=== PATIENT | male | born 1950 | race Caucasian/White ===

== ENCOUNTER → 2019-02-03 08:00 | Outpatient (CLI) | payer OTHER, SELFPAY ==
[2019-02-03 08:45] LABS: Add Manual Diff / Slide Review NO; Basophils Absolute Auto 0 /uL (0-100); Basophils Percent Auto 0.7 % (0-2); Eosinophils Absolute Auto 200 /uL (0-450); Eosinophils Percent Auto 3.4 % (2-4); Hematocrit 42.3 % (41-53); Hemoglobin 14.3 g/dL (13.5-17.5); Lymphocytes Absolute Auto 1900 /uL (1100-4500); Lymphocytes Percent Auto 36.2 % (25-40); Mean Corpuscular HGB Conc 33.7 % (30-36); Mean Corpuscular Hemoglobin 31.8 PG (26-34); Mean Corpuscular Volume 94.2 fL (80-100); Monocytes Absolute Auto 600 /uL (0-900); Monocytes Percent Auto 10.6 % (3-14); Neutrophils Absolute Auto 2600 /uL (1500-7000); Neutrophils Percent Auto 49.1 % (50-75); Platelet Count 197 X10^3/uL (150-400); Red Blood Cell Count 4.49 X10^6/uL (4.5-5.9); Red Cell Distribution Width 13.9 % (11.6-14.8); White Blood Cell Count 5.3 X10^3/uL (4.5-11.0)
[2019-02-03 09:11] LABS: Alanine Aminotransferase 24 IU/L (21-72); Albumin 4.4 g/dL (3.5-5.0); Albumin Globulin Ratio 1.3 (1.0-2.8); Alkaline Phosphatase 57 U/L (38-126); Aspartate Aminotransferase 27 IU/L (17-59); BUN Creatinine Ratio 22.7 (6-22); Bilirubin Total 0.9 mg/dL (0.2-1.3); Blood Urea Nitrogen 25 mg/dL (9-20); Calcium 9.2 mg/dL (8.4-10.2); Carbon Dioxide 29 mmol/L (22-32); Chloride 104 mmol/L (98-107); Cholesterol 146 mg/dL (140-199); Estimated Glomerular Filt Rate > 60.0 mL/min (>60); Globulin 3.3 g/dL (1.7-4.1); Glucose 94 mg/dL (80-110); HDL Cholesterol 34 mg/dL (40-60); HEMOLYSIS < 15 (0-50); LDL Cholesterol Calculated 91 mg/dL (<100); Potassium 4.2 mmol/L (3.4-5.1); Sodium 141 mmol/L (137-145); Total Protein 7.7 g/dL (6.3-8.2); Triglycerides 107 mg/dL (35-150)
[2019-02-03 09:31] LABS: Prostate Specific Antigen Scrn 0.794 ng/mL (0.1-4.0)
[2019-02-03 09:34] LABS: Thyroid Stimulating Hormone 7.42 uIU/mL (0.47-4.68)
[2019-02-03 10:40] LABS: Free T3, Triiodothyronine Free 4.11 pg/mL (2.77-5.27); Free T4, Direct Thyroxine 1.13 ng/dL (0.78-2.19)
== END ==
PROVIDERS: PCP Family Medicine; Visit Provider Family Medicine
DX: E78.5 Hyperlipidemia, unspecified (principal); E03.9 Hypothyroidism, unspecified; Z12.5 Encounter for screening for malignant neoplasm of prostate
CPT/HCPCS: 36415; 80053; 80061; 84439; 84443; 84481; 85025; G0103

== ENCOUNTER → 2019-03-12 10:12 | Outpatient (CLI) | payer OTHER, SELFPAY ==
[2019-03-12 10:55] LABS: Add Manual Diff / Slide Review NO; Basophils Absolute Auto 0 /uL (0-100); Basophils Percent Auto 0.5 % (0-2); Eosinophils Absolute Auto 200 /uL (0-450); Eosinophils Percent Auto 3.1 % (2-4); Hematocrit 41.7 % (41-53); Lymphocytes Absolute Auto 1700 /uL (1100-4500); Lymphocytes Percent Auto 29.6 % (25-40); Mean Corpuscular HGB Conc 33.5 % (30-36); Mean Corpuscular Hemoglobin 31.4 PG (26-34); Mean Corpuscular Volume 93.7 fL (80-100); Monocytes Absolute Auto 700 /uL (0-900); Monocytes Percent Auto 11.6 % (3-14); Neutrophils Absolute Auto 3100 /uL (1500-7000); Neutrophils Percent Auto 55.2 % (50-75); Platelet Count 219 X10^3/uL (150-400); Red Blood Cell Count 4.45 X10^6/uL (4.5-5.9); Red Cell Distribution Width 13.6 % (11.6-14.8); White Blood Cell Count 5.7 X10^3/uL (4.5-11.0)
[2019-03-12 11:12] LABS: Alanine Aminotransferase 23 IU/L (21-72); Albumin 4.4 g/dL (3.5-5.0); Albumin Globulin Ratio 1.3 (1.0-2.8); Alkaline Phosphatase 65 U/L (38-126); Aspartate Aminotransferase 27 IU/L (17-59); BUN Creatinine Ratio 25.5 (6-22); Bilirubin Total 0.7 mg/dL (0.2-1.3); Bilirubin Unconjugated 0.6 mg/dL (0.0-1.1); Blood Urea Nitrogen 28 mg/dL (9-20); Calcium 9.2 mg/dL (8.4-10.2); Carbon Dioxide 28 mmol/L (22-32); Chloride 105 mmol/L (98-107); Estimated Glomerular Filt Rate > 60.0 mL/min (>60); Globulin 3.4 g/dL (1.7-4.1); Glucose 77 mg/dL (80-110); HEMOLYSIS < 15 (0-50); Sodium 143 mmol/L (137-145); Total Protein 7.8 g/dL (6.3-8.2)
== END ==
PROVIDERS: Family Provider Family Medicine; PCP Family Medicine; Visit Provider Podiatrist
DX: L60.8 Other nail disorders (principal)
CPT/HCPCS: 36415; 80048; 80076; 85025

== ENCOUNTER → 2020-04-05 11:40 | Outpatient (CLI) | payer OTHER, SELFPAY ==
[2020-04-05 12:25] LABS: Add Manual Diff / Slide Review NO; Basophils Absolute Auto 0 /uL (0-100); Basophils Percent Auto 0.9 % (0-2); Eosinophils Absolute Auto 200 /uL (0-450); Hematocrit 42.6 % (41-53); Hemoglobin 14.6 g/dL (13.5-17.5); Lymphocytes Absolute Auto 1800 /uL (1100-4500); Lymphocytes Percent Auto 32.2 % (25-40); Mean Corpuscular HGB Conc 34.4 % (30-36); Mean Corpuscular Hemoglobin 32.2 PG (26-34); Mean Corpuscular Volume 93.6 fL (80-100); Monocytes Absolute Auto 600 /uL (0-900); Monocytes Percent Auto 10.4 % (3-14); Neutrophils Absolute Auto 3000 /uL (1500-7000); Neutrophils Percent Auto 53.5 % (50-75); Platelet Count 213 X10^3/uL (150-400); Red Blood Cell Count 4.55 X10^6/uL (4.5-5.9); Red Cell Distribution Width 13.4 % (11.6-14.8); White Blood Cell Count 5.7 X10^3/uL (4.5-11.0)
[2020-04-05 12:35] LABS: Alanine Aminotransferase 21 IU/L (<50); Albumin 4.6 g/dL (3.5-5.0); Albumin Globulin Ratio 1.3 (1.0-2.8); Alkaline Phosphatase 63 U/L (38-126); Aspartate Aminotransferase 28 IU/L (17-59); Bilirubin Total 0.9 mg/dL (0.2-1.3); Blood Urea Nitrogen 19 mg/dL (9-20); Calcium 9.6 mg/dL (8.4-10.2); Carbon Dioxide 29 mmol/L (22-32); Chloride 107 mmol/L (98-107); Cholesterol 169 mg/dL (140-199); Estimated Glomerular Filt Rate > 60.0 mL/min (>60); Globulin 3.5 g/dL (1.7-4.1); Glucose 104 mg/dL (80-110); HDL Cholesterol 33 mg/dL (40-60); HEMOLYSIS < 15 (0-50); LDL Cholesterol Calculated 106 mg/dL (<100); Potassium 4.4 mmol/L (3.4-5.1); Sodium 142 mmol/L (137-145); Total Protein 8.1 g/dL (6.3-8.2); Triglycerides 152 mg/dL (35-150)
== END ==
PROVIDERS: Family Provider Family Medicine; PCP Family Medicine; Referring Provider Family Medicine; Visit Provider Family Medicine
DX: Z12.5 Encounter for screening for malignant neoplasm of prostate (principal); E78.5 Hyperlipidemia, unspecified; I10 Essential (primary) hypertension
CPT/HCPCS: 36415; 80053; 80061; 85025; G0103

== ENCOUNTER 2020-07-18 10:17 | Emergency (ER) | payer OTHER, SELFPAY ==
--- NOTE | 2020-07-18 10:29 | ED_ITS ---
HPI - Male Genitourinary General Chief complaint: Urogenital-Male Stated complaint: kidney stone 7am Time Seen by Provider: 07/18/20 10:18 Source: patient and family Mode of arrival: Ambulatory Limitations: no limitations History of Present Illness HPI Narrative: 69-year-old male nonsmoker with history of hypertension and former kidney stones presents with a chief complaint of a sudden onset left lower quadrant sharp and stabbing pain without provocation or palliation that started this morning at 7:00 a.m.. He cannot find a position of comfort. It reminds him of prior kidney stones. He denies any recent injury. He is nauseated but denies any vomiting. He denies any chest pain or shortness of breath. He denies fever, chills or back pain. Onset (ago): hour(s) Duration: constant Location: left inguinal region Severity: similar to previous episodes Relieving factors: none Exacerbating factors: none Associated symptoms: Reports nausea/vomiting Related Data Home Medications Medication Instructions Recorded Confirmed ASPIRIN (#ASPIRIN) 81 mg PO QDAY #0 08/30/11 04/12/20 cholecalciferol (vitamin D3) 2,000 iu PO QDAY #0 08/30/11 04/12/20 [Vitamin D3] doxylamine succinate [Sleep Aid 12.5 mg PO HS #0 09/04/11 04/12/20 (doxylamine)] CA PANTOTHENATE/FOLIC ACID/VIT 1 tab PO QDAY #0 12/27/12 04/12/20 (MULTIVITAMIN) COENZYME Q10/VITAMIN E (CO-Q-10 100 mg PO QDAY #0 12/27/12 04/12/20 100mg) Previous Rx's Medication Instructions Recorded lorazepam 0 mg PO Q6HP PRN #30 tab 12/26/17 triamterene-hydrochlorothiazid 0 PO QDAY #45 tab 01/30/18 [Maxzide] varicella-zoster gE-AS01B (PF) 0.5 ml IM SEE INSTRUCTIONS #1 ea 01/30/18 [Shingrix (PF)] amlodipine 10 mg tablet 10 mg PO QDAY #90 tab 03/15/20 simvastatin 40 mg tablet See Rx Instructions .ROUTE 05/26/20 .COMPLEX #45 tab hydrocodone-acetaminophen 1 tab PO Q4-6H PRN #10 tab 07/18/20 ketorolac 10 mg PO Q6H PRN #14 tab 07/18/20 ondansetron 4 mg PO TID-QID PRN #10 tab 07/18/20 tamsulosin [Flomax] 0.4 mg PO DAILY #10 cap 07/18/20 Allergies Allergy/AdvReac Type Severity Reaction Status Date / Time No Known Drug Allergies Allergy Unverified 04/12/20 10:58 Review of Systems Constitutional Constitutional: Denies chills, Denies fatigue, Denies fever(s), Denies frequent falls, Denies lethargy and Denies weakness Eyes Eyes: Denies change in vision, Denies eye discharge, Denies irritation and Denies loss of vision ENT Ears, Nose, Mouth, and Throat: Denies change in voice, Denies dizziness, Denies neck pain, Denies sore throat and Denies throat swelling Cardiovascular Cardiovascular: Denies chest pain, Denies irregular heart rhythm, Denies lightheadedness, Denies palpitations, Denies dyspnea, Denies dyspnea on exertion and Denies orthopnea Respiratory Respiratory: Denies cough, Denies dyspnea, Denies dyspnea on exertion and Denies wheezing Gastrointestinal Gastrointestinal: Denies abdominal pain, Denies change in bowel habits, Denies diarrhea, Denies nausea and Denies vomiting Genitourinary Comments: Left groin pain Musculoskeletal Musculoskeletal: Denies neck pain and Denies numbness Integumentary/Breasts Skin/Breast: Denies pruritus, Denies erythema, Denies rash and Denies wounds Neurologic Neurologic: Denies behavioral changes, Denies confusion, Denies dizziness, Denies frequent falls, Denies loss of vision, Denies numbness and Denies weakness Psychiatric Psychiatric: Denies anxiety, Denies behavioral changes, Denies confusion, Denies depression, Denies homicidal ideation and Denies suicidal ideation Endocrine Endocrine: Denies fatigue, Denies flushing and Denies palpitations Hematologic/Lymphatic Hematologic/Lymphatic: Denies easy bruising Allergic/Immunologic Allergic/Immunologic: Denies urticaria, Denies throat swelling and Denies w heezing Patient History Surgical History History of vasectomy Social History marital status: number of children: 2 household members: spouse lives independently: Yes caregiver/support person: No housing: house Smoking Status: Never smoker second hand exposure: No alcohol intake: current substance use type: does not use Smoking Status: Never smoker Exam Narrative Exam Narrative: GENERAL: [69] year old patient appears stated age. Well- nourished, well-developed patient, in obvious significant distress, pacing the r oom, rubbing his left lower abdomen and groin HEAD: Atraumatic. Normocephalic. EYES: Pupils equal round and reactive. Extraocular motions intact. No scleral icterus. No injection or drainage. ENT: Nose without bleeding, purulent drainage. Throat without erythema, tonsillar hypertrophy or exudate. Airway patent. NECK: Trachea midline. Non tender CARDIOVASCULAR: Regular rate and rhythm without murmurs, gallops, or rubs. RESPIRATORY: Clear to auscultation. Breath sounds equal bilaterally. No wheezes, rales, or rhonchi. GASTROINTESTINAL: Abdomen soft, non-tender, nondistended. EXTREMITIES: No edema or joint tenderness. BACK: Nontender without deformity or crepitance. No flank tenderness. NEURO: AOx3. SKIN: No rash or erythema of visible areas Initial Vital Signs Initial Vital Signs: Vital Signs Temperature 97.9 F 07/18/20 10:41 Pulse Rate 68 07/18/20 10:41 Respiratory Rate 07/18/20 10:41 Blood Pressure 138/79 07/18/20 10:41 Pulse Oximetry 100 07/18/20 10:41 Course Orders Ordered: ED Orders 07/18/20 10:38 Basic Metabolic Panel Stat Complete Blood Count AUTO DIFF Stat 07/18/20 10:40 CT kidney ureter bladder (KUB) Stat 07/18/20 12:22 Urine Microscopic Stat Discontinued Medications Sodium Chloride (Normal Saline 0.9%) 1,000 mls @ 1,000 mls/hr IV BOLUS ONE Stop: 07/18/20 11:38 Last Infusion: 07/18/20 13:24 Dose: 1,000 mls/hr Documented by: Infusion: 07/18/20 11:55 Dose: 1,000 mls/hr Documented by: Admin: 07/18/20 11:12 Dose: 1,000 mls/hr Documented by: ALBERTA Lidocaine HCl 6.5 ml/ Sodium (Chloride) 56.5 mls @ 339 mls/hr IV NOW ONE Stop: 07/18/20 10:41 Last Infusion: 07/18/20 11:55 Dose: 0 mls/hr Documented by: Admin: 07/18/20 11:09 Dose: 339 mls/hr Documented by: ALBERTA Ketorolac Tromethamine (Toradol) 15 mg IV NOW ONE Stop: 07/18/20 10:40 Last Admin: 07/18/20 11:12 Dose: 15 mg Documented by: ALBERTA Ondansetron HCl (Zofran) 4 mg IV NOW ONE Stop: 07/18/20 11:05 Last Admin: 07/18/20 11:08 Dose: 4 mg Documented by: ALBERTA Reevaluation(s) Reevaluation #1: patient feeling much better after above stated therapies Time: 11:58 Vital Signs Vital signs: Vital Signs - 8 hr 07/18/20 10:41 07/18/20 11:36 07/18/20 12:00 Temperature 97.9 F Pulse Rate 68 69 69 Respiratory Rate 20 Blood Pressure 138/79 157/78 H Pulse Oximetry 100 100 100 07/18/20 12:30 07/18/20 13:00 Temperature Pulse Rate 62 65 Respiratory Rate Blood Pressure 159/79 H 162/82 H Pulse Oximetry 99 100 MDM - Male Genitourinary Lab Data Result diagrams: 07/18/20 10:38 07/18/20 10:38 Labs: Lab Results 07/18/20 07/18/20 07/18/20 Range/Units 10:38 10:38 12:22 WBC 13.4 H (4.5-11.0) X10^3/uL RBC 4.44 L (4.5-5.9) X10^6/uL Hgb 13.9 (13.5-17.5) g/dL Hct 41.3 (41-53) % MCV 93.0 (80-100) fL MCH 31.3 (26-34) PG MCHC 33.6 (30-36) % RDW 13.5 (11.6-14.8) % Plt Count 226 (150-400) X10^3/uL Neut % (Auto) 77.1 H (50-75) % Lymph % (Auto) 15.1 L (25-40) % [place] % (Auto) 7.0 (3-14) % Eos % (Auto) 0.3 L (2-4) % Baso % (Auto) 0.5 (0-2) % Neut # (Auto) 63929 H (0908-9079) /uL Lymph # (Auto) 2000 (5835-1162) /uL [place] # (Auto) 900 (0-900) /uL Eos # (Auto) 0 (0-450) /uL Baso # (Auto) 100 (0-100) /uL Sodium 138 (137-145) mmol/L Potassium 3.3 L (3.4-5.1) mmol/L Chloride 106 (98-107) mmol/L Carbon Dioxide 22 (22-32) mmol/L BUN 23 H (9-20) mg/dL Creatinine 1.16 (0.66-1.25) mg/dL Estimated GFR > 60.0 (>60) mL/min BUN/Creatinine Ratio 19.8 (6-22) Glucose 131 H (80-110) mg/dL Calcium 9.1 (8.4-10.2) mg/dL Urine RBC 1-5/hpf (0-5/HPF) Urine WBC 0-1/hpf (0-5/HPF) Ur Squamous Epith Cells 0-1 /hpf (0-5/HPF) Urine Bacteria None seen (None) Ur Culture Indicated? Cult not indicated Urine Dip Bedside Urine Glucose Negative Bedside Urine Bilirubin - Negative Bedside Urine Ketone +/- 5 Urine Specific [place] 1.015 Bedside Urine Occult Blood +/- Bedside Urine pH 7.0 Bedside Urine Protein - Negative Bedside Urine Urobilinogen - Negative Bedside Urine Nitrite - Negative Bedside Urine Leukocytes - Negative Esterase Imaging Data CT scan - abdomen/pelvis: Radiologist's Impression: Chart Viewer Diagnostics DATE TYPE STATUS REF RANGE/AUTHOR Hx 07/18/20 10:40 Irineo MobleytersStiven 69, M112/16/1949 [facility], Main ED R12 86.183kg Urogenital-Male Search Chart No Data to Display NF - Not included in interaction checking ONSET Today 10:41 Stiven Nieves 69 M [address] [address] [address] Scan Report Signed Patient: EzequielStiven GMR#: [id number] : 1950Acct:[id number] Age/Sex: 69 / MDate of Service: 07/18/20 Loc: ED Accession Number: [id number] Procedure: CT kidney ureter bladder (KUB) Ordering Provider: Inderjit Andrews D.O. PROCEDURE: CT KIDNEY URETER BLADDER (KUB) INDICATIONS: severe L flank pain TECHNIQUE: Noncontrast 5 mm thick sections acquired from the diaphragms to the symphysis. 5 mm thick coronal and sagittal reformats were then performed. For radiation dose reduction, the following was used: automated exposure control, adjustment of mA and/or kV according to patient size. COMPARISON: Merged With [facility], CT, KIDNEY/ URETER/BLADDER, 06/26/2010, 9:13. FINDINGS: Image quality: Excellent. Lung bases: Lung bases are clear. Heart size is normal. A small hiatal hernia is incidentally noted. Urinary system: There is a 3-4 mm distal left ureteral stone seen, as on series 2, image 73 and on series 4, image 36. There is mild left-sided hydronephrosis and hydroureter. No right-sided hydronephrosis is seen. Numerous nonobstructing bilateral renal stones are seen, which measure up to 2 mm on each side. Both kidneys are normal in size. Bilateral peripelvic cysts are seen. An additional water density cyst is seen exophytic at the inferior pole of the left kidney measuring 1.5 cm. Bladder wall thickness is normal; no calcified bladder stones. Other solid organs: Liver is normal in size. Gallbladder demonstrates no significant abnormality. Pancreas is normal in contours. Spleen is normal in size. No adrenal nodules. Peritoneum and bowel: Moderate sigmoid diverticulosis is seen. Generalized wall thickening is seen involving the colon, particularly distally. No dilated loops of small bowel are seen. No free air or significant free fluid can be seen. A normal appendix is incidentally noted. Nodes and vessels: No retroperitoneal or mesenteric adenopathy by size criteria. Aorta and inferior vena cava are normal in caliber. Atherosclerotic calcification is noted. Abdominal wall: A mild periumbilical hernia is seen, containing fat. Pelvis: No free pelvic fluid. No enlarged inguinal or pelvic lymph nodes are seen. There is a fat-containing right inguinal hernia seen. The prostate does not appear enlarged. Bones: No suspicious bony lesions. No vertebral body compression fractures. Generalized degenerative changes are seen, including focal L5-S1 degenerative change. IMPRESSION: 3-4 mm obstructing distal left ureteral stone, with mild left-sided hydronephrosis. Numerous nonobstructing tiny bilateral renal stones are seen, which measure up to 2 mm. Numerous bilateral peripelvic cysts are seen Generalized wall thickening is seen involving colon. Please consider infectious or inflammatory change. Differential diagnosis includes artifact from non distension, however. Moderate sigmoid diverticulosis is seen, without diana active diverticulitis. Incidental note is made of: Small hiatal hernia Right containing periumbilical hernia Normal appendix Focal L5-S1 degenerative change Fat containing right inguinal hernia Dictated by: Irineo Mobley M.D. on 07/18/2020 at 10:03 Approved by: Irineo Mobley M.D. on 07/18/2020 at 10:08 Discharge Plan Departure Patient Disposition: Home Clinical Impression: Kidney stone on left side Discharge Date/Time: 07/18/20 13:25 Instructions: DI for Kidney Stones Activity Restrictions/Additional Instructions: *You have been diagnosed with [ left sided 3mm kidney stone ] *What to do: *Take medications as directed *Follow up with your primary care provider in 2-3 days, call for an appointment. Let them know you were seen in the Emergency Department and that we ask that you be seen in follow up *Return to ER if you should have any new, worsening or concerning symptoms Prescriptions: New tamsulosin [Flomax] 0.4 mg capsule 0.4 mg PO DAILY Qty: 10 RF: 0 hydrocodone-acetaminophen 5-325 mg tablet 1 tab PO Q4-6H PRN (Reason: pain) Qty: 10 RF: 0 ketorolac 10 mg tablet 10 mg PO Q6H PRN (Reason: pain) Qty: 14 RF: 0 ondansetron 4 mg tablet,disintegrating 4 mg PO TID-QID PRN (Reason: nausea and vomiting) Qty: 10 RF: 0 No Action ASPIRIN (#ASPIRIN) 81 mg PO QDAY Qty: 0 RF: 0 cholecalciferol (vitamin D3) [Vitamin D3] 2,000 UNIT capsule 2,000 iu PO QDAY Qty: 0 RF: 0 doxylamine succinate [Sleep Aid (doxylamine)] 25 MG tablet 12.5 mg PO HS Qty: 0 RF: 0 CA PANTOTHENATE/FOLIC ACID/VIT (MULTIVITAMIN) 1 tab PO QDAY Qty: 0 RF: 0 COENZYME Q10/VITAMIN E (CO-Q-10 100mg) 100 mg PO QDAY Qty: 0 RF: 0 lorazepam 1 MG tablet 0 mg PO Q6HP PRNQty: 30 RF: 0 triamterene-hydrochlorothiazid [Maxzide] 75 MG/50 MG tablet 0 PO QDAY Qty: 45 RF: 3 varicella-zoster gE-AS01B (PF) [Shingrix (PF)] 50 MCG/0.5 ML suspension for r econstitution 0.5 ml IM SEE INSTRUCTIONS Qty: 1 RF: 1 amlodipine [Norvasc] 10 mg tablet 10 mg PO QDAY Qty: 90 RF: 3 simvastatin 40 mg tablet See Rx Instructions .ROUTE .COMPLEX Qty: 45 RF: 0 Referrals: Denis Ward MD [Physician] - Nia Haynes MD [Primary Care Provider] -
--- NOTE | 2020-07-18 10:40 | DI.CT.S_ITS ---
PROCEDURE: CT KIDNEY URETER BLADDER (KUB) INDICATIONS: severe L flank pain TECHNIQUE: Noncontrast 5 mm thick sections acquired from the diaphragms to the symphysis. 5 mm thick coronal and sagittal reformats were then performed. For radiation dose reduction, the following was used: automated exposure control, adjustment of mA and/or kV according to patient size. COMPARISON: [facility], CT, KIDNEY/ URETER/BLADDER, 06/26/2010, 9:13. FINDINGS: Image quality: Excellent. Lung bases: Lung bases are clear. Heart size is normal. A small hiatal hernia is incidentally noted. Urinary system: There is a 3-4 mm distal left ureteral stone seen, as on series 2, image 73 and on series 4, image 36. There is mild left-sided hydronephrosis and hydroureter. No right-sided hydronephrosis is seen. Numerous nonobstructing bilateral renal stones are seen, which measure up to 2 mm on each side. Both kidneys are normal in size. Bilateral peripelvic cysts are seen. An additional water density cyst is seen exophytic at the inferior pole of the left kidney measuring 1.5 cm. Bladder wall thickness is normal; no calcified bladder stones. Other solid organs: Liver is normal in size. Gallbladder demonstrates no significant abnormality. Pancreas is normal in contours. Spleen is normal in size. No adrenal nodules. Peritoneum and bowel: Moderate sigmoid diverticulosis is seen. Generalized wall thickening is seen involving the colon, particularly distally. No dilated loops of small bowel are seen. No free air or significant free fluid can be seen. A normal appendix is incidentally noted. Nodes and vessels: No retroperitoneal or mesenteric adenopathy by size criteria. Aorta and inferior vena cava are normal in caliber. Atherosclerotic calcification is noted. Abdominal wall: A mild periumbilical hernia is seen, containing fat. Pelvis: No free pelvic fluid. No enlarged inguinal or pelvic lymph nodes are seen. There is a fat-containing right inguinal hernia seen. The prostate does not appear enlarged. Bones: No suspicious bony lesions. No vertebral body compression fractures. Generalized degenerative changes are seen, including focal L5-S1 degenerative change. IMPRESSION: 3-4 mm obstructing distal left ureteral stone, with mild left-sided hydronephrosis. Numerous nonobstructing tiny bilateral renal stones are seen, which measure up to 2 mm. Numerous bilateral peripelvic cysts are seen Generalized wall thickening is seen involving colon. Please consider infectious or inflammatory change. Differential diagnosis includes artifact from non distension, however. Moderate sigmoid diverticulosis is seen, without diana active diverticulitis. Incidental note is made of: Small hiatal hernia Right containing periumbilical hernia Normal appendix Focal L5-S1 degenerative change Fat containing right inguinal hernia Dictated by: Irineo Mobley M.D. on 07/18/2020 at 10:03 Approved by: Irineo Mobley M.D. on 07/18/2020 at 10:08
[2020-07-18 10:41] VITALS: BP 138/79; PULSE 68; RESP 20; TEMP 36.6; O2SAT 100
[2020-07-18 10:48] LABS: Add Manual Diff / Slide Review NO; Basophils Absolute Auto 100 /uL (0-100); Basophils Percent Auto 0.5 % (0-2); Eosinophils Absolute Auto 0 /uL (0-450); Eosinophils Percent Auto 0.3 % (2-4); Hematocrit 41.3 % (41-53); Hemoglobin 13.9 g/dL (13.5-17.5); Lymphocytes Absolute Auto 2000 /uL (1100-4500); Lymphocytes Percent Auto 15.1 % (25-40); Mean Corpuscular HGB Conc 33.6 % (30-36); Mean Corpuscular Hemoglobin 31.3 PG (26-34); Monocytes Absolute Auto 900 /uL (0-900); Neutrophils Absolute Auto 10300 /uL (1500-7000); Neutrophils Percent Auto 77.1 % (50-75); Platelet Count 226 X10^3/uL (150-400); Red Blood Cell Count 4.44 X10^6/uL (4.5-5.9); Red Cell Distribution Width 13.5 % (11.6-14.8); White Blood Cell Count 13.4 X10^3/uL (4.5-11.0)
[2020-07-18 10:53] LABS: BUN Creatinine Ratio 19.8 (6-22); Blood Urea Nitrogen 23 mg/dL (9-20); Calcium 9.1 mg/dL (8.4-10.2); Carbon Dioxide 22 mmol/L (22-32); Chloride 106 mmol/L (98-107); Estimated Glomerular Filt Rate > 60.0 mL/min (>60); Glucose 131 mg/dL (80-110); HEMOLYSIS 17 (0-50); Potassium 3.3 mmol/L (3.4-5.1); Sodium 138 mmol/L (137-145)
[2020-07-18] MEDS: ONDANSETRON 4 MG/2 ML INJ IV (11:08)
[2020-07-18] MEDS: LIDOCAINE 2% 6.5 ML in SODIUM CHLORIDE 0.9% 50 ML 339 ML IV (11:09)
[2020-07-18] MEDS: KETOROLAC 60 MG/2 ML VIAL 15 MG IV (11:12)
[2020-07-18] MEDS: SODIUM CHLORIDE 0.9% 1,000 ML 1000 ML IV (11:12)
[2020-07-18 11:36] VITALS: PULSE 69; O2SAT 100
[2020-07-18 12:00] VITALS: BP 157/78; PULSE 69; O2SAT 100
[2020-07-18 12:30] VITALS: BP 159/79; PULSE 62; O2SAT 99
[2020-07-18 12:50] LABS: Bacteria Urine None Seen
[2020-07-18 12:58] LABS: RBC Urine 1-5/HPF (0-5/HPF); WBC Urine 0-1/HPF (0-5/HPF)
[2020-07-18 12:59] LABS: Culture Indicated Urine Cult Not Indicated; Squamous Epithelial Cell Urine 0-1 /HPF (0-5/HPF)
[2020-07-18 13:00] VITALS: BP 162/82; PULSE 65; O2SAT 100
== END 2020-07-18 13:25 | disposition home or self-care (01) ==
PROVIDERS: Emergency Provider Emergency Medicine; Family Provider Family Medicine; PCP Family Medicine
DX: N20.0 Calculus of kidney (principal); R11.2 Nausea with vomiting, unspecified; Z87.442 Personal history of urinary calculi
CPT/HCPCS: 36415; 74176; 80048; 81003; 81015; 85025; 96365; 96375; 99284; J1885; J2405

== ENCOUNTER 2020-07-20 00:34 | Observation (INO) | payer OTHER, SELFPAY ==
[2020-07-20] VITALS (19 sets, daily range): BP systolic 134–161; BP diastolic 51–96; PULSE 57–88; RESP 10–20; TEMP 36.4–37.1; O2SAT 93–100; BMI 27.2
--- NOTE | 2020-07-20 00:48 | ED.MALEGU ---
HPI - Male Genitourinary General Chief complaint: Back Pain/Injury Stated complaint: left kidney stone, pain is worse Time Seen by Provider: 07/20/20 00:35 Source: patient Mode of arrival: Ambulatory Limitations: no limitations History of Present Illness HPI Narrative: 69M nonsmoker with a known 3-4mm left distal ureteral stone presents with his and the chief complaint of worsening left flank pain. He has had no fever or chills, but states his pain is worse and he hasn't been eating or drinking much. He denies provocation or palliation of the pain. He denies any injury. MD Complaint: other Onset (ago): day(s) Duration: constant Location: left flank Radiation: left inguinal region Severity: severe Quality: aching and stabbing Relieving factors: none Exacerbating factors: none Associated symptoms: Reports nausea/vomiting Related Data Home Medications Medication Instructions Recorded Confirmed ASPIRIN (#ASPIRIN) 81 mg PO QDAY #0 08/30/11 04/12/20 cholecalciferol (vitamin D3) 2,000 iu PO QDAY #0 08/30/11 04/12/20 [Vitamin D3] doxylamine succinate [Sleep Aid 12.5 mg PO HS #0 09/04/11 04/12/20 (doxylamine)] CA PANTOTHENATE/FOLIC ACID/VIT 1 tab PO QDAY #0 12/27/12 04/12/20 (MULTIVITAMIN) COENZYME Q10/VITAMIN E (CO-Q-10 100 mg PO QDAY #0 12/27/12 04/12/20 100mg) Previous Rx's Medication Instructions Recorded lorazepam 0 mg PO Q6HP PRN #30 tab 12/26/17 triamterene-hydrochlorothiazid 0 PO QDAY #45 tab 01/30/18 [Maxzide] varicella-zoster [id number] (PF) 0.5 ml IM SEE INSTRUCTIONS #1 ea 01/30/18 [Shingrix (PF)] amlodipine 10 mg tablet 10 mg PO QDAY #90 tab 03/15/20 simvastatin 40 mg tablet See Rx Instructions .ROUTE 05/26/20 .COMPLEX #45 tab hydrocodone-acetaminophen 1 tab PO Q4-6H PRN #10 tab 07/18/20 ketorolac 10 mg PO Q6H PRN #14 tab 09/20/20 ondansetron 4 mg PO TID-QID PRN #10 tab 07/18/20 tamsulosin [Flomax] 0.4 mg PO DAILY #10 cap 07/18/20 Allergies Allergy/AdvReac Type Severity Reaction Status Date / Time No Known Drug Allergies Allergy Unverified 04/12/20 10:58 Review of Systems Constitutional Constitutional: Denies chills, Denies fatigue, Denies fever(s), Denies frequent falls, Denies lethargy and Denies weakness Eyes Eyes: Denies change in vision, Denies eye discharge, Denies irritation and Denies loss of vision ENT Ears, Nose, Mouth, and Throat: Denies change in voice, Denies dizziness, Denies neck pain, Denies sore throat and Denies throat swelling Cardiovascular Cardiovascular: Denies chest pain, Denies irregular heart rhythm, Denies lightheadedness, Denies palpitations, Denies dyspnea, Denies dyspnea on exertion and Denies orthopnea Respiratory Respiratory: Denies cough, Denies dyspnea, Denies dyspnea on exertion and Denies wheezing Gastrointestinal Gastrointestinal: Denies abdominal pain, Denies change in bowel habits, Denies diarrhea, Denies nausea and Denies vomiting Genitourinary Comments: flank pain Musculoskeletal Musculoskeletal: Denies neck pain and Denies numbness Integumentary/Breasts Skin/Breast: Denies pruritus, Denies erythema, Denies rash and Denies wounds Neurologic Neurologic: Denies behavioral changes, Denies confusion, Denies dizziness, Denies frequent falls, Denies loss of vision, Denies numbness and Denies weakness Psychiatric Psychiatric: Denies anxiety, Denies behavioral changes, Denies confusion, Denies depression, Denies homicidal ideation and Denies suicidal ideation Endocrine Endocrine: Denies fatigue, Denies flushing and Denies palpitations Hematologic/Lymphatic Hematologic/Lymphatic: Denies easy bruising Allergic/Immunologic Allergic/Immunologic: Denies urticaria, Denies throat swelling and Denies wheezing Patient History Surgical History History of vasectomy Social History marital status: number of children: 2 household members: spouse lives independently: Yes caregiver/support person: No housing: house Smoking Status: Never smoker second hand exposure: No alcohol intake: current substance use type: does not use Smoking Status: Never smoker alcohol intake frequency: other Substance Use Type: does not use Exam Narrative Exam Narrative: GENERAL 60 year old patient appears stated age. Well-nourished, well-developed patient, in obvious pain. HEAD: Atraumatic. Normocephalic. EYES: Pupils equal round and reactive. Extraocular motions intact. No scleral icterus. No injection or drainage. ENT: Nose without bleeding, purulent drainage. Throat without erythema, tonsillar hypertrophy or exudate. Airway patent. NECK: Trachea midline. Non tender CARDIOVASCULAR: Regular rate and rhythm without murmurs, gallops, or rubs. RESPIRATORY: Clear to auscultation. Breath sounds equal bilaterally. No wheezes, rales, or rhonchi. GASTROINTESTINAL: Abdomen soft, non-tender, nondistended. EXTREMITIES: No edema or joint tenderness. BACK: Nontender without deformity or crepitance. No flank tenderness. NEURO: AOx3. SKIN: No rash or erythema of visible areas Initial Vital Signs Initial Vital Signs: Vital Signs Temperature 98.3 F 07/20/20 00:42 Pulse Rate 66 07/20/20 00:42 Respiratory Rate 20 07/20/20 00:42 Blood Pressure 161/77 H 07/20/20 00:42 Pulse Oximetry 100 07/20/20 00:42 Course Orders Ordered: ED Orders 07/20/20 00:56 Basic Metabolic Panel Stat Complete Blood Count AUTO DIFF Stat 07/20/20 01:32 US renal complete Stat 07/20/20 03:00 Creatinine & eGFR Stat Ceftriaxone Sodium/Dextrose (Rocephin) 1 gm in 50 mls @ 100 mls/hr IV NOW ONE Stop: 07/20/20 04:03 Ondansetron HCl (Zofran) 4 mg IV Q4HR PRN PRN Reason: Nausea And Vomiting Last Admin: 07/20/20 00:59 Dose: 4 mg Documented by: SULY Discontinued Medications Hydromorphone HCl (Dilaudid) 0.5 mg IV NOW ONE Stop: 07/20/20 01:26 Last Admin: 07/20/20 01:28 Dose: 0.5 mg Documented by: DHARA Hydromorphone HCl (Dilaudid) 0.5 mg IV NOW ONE Stop: 07/20/20 03:35 Sodium Chloride (Normal Saline 0.9%) 1,000 mls @ 1,000 mls/hr IV BOLUS ONE Stop: 07/20/20 01:47 Last Infusion: 07/20/20 02:12 Dose: 0 mls/hr Documented by: Admin: 07/20/20 00:59 Dose: 1,000 mls/hr Documented by: SULY Lidocaine HCl 6.5 ml/ Sodium (Chloride) 56.5 mls @ 339 mls/hr IV NOW ONE Stop: 07/20/20 00:49 Last Infusion: 07/20/20 01:19 Dose: 0 mls/hr Documented by: Admin: 07/20/20 01:02 Dose: 339 mls/hr Documented by: DHARA Sodium Chloride (Normal Saline 0.9%) 1,000 mls @ 1,000 mls/hr IV BOLUS ONE Stop: 07/20/20 03:23 Last Admin: 07/20/20 02:27 Dose: 1,000 mls/hr Documented by: DHARA Ketorolac Tromethamine (Toradol) 15 mg IV NOW ONE Stop: 07/20/20 00:49 Last Admin: 07/20/20 00:59 Dose: 15 mg Documented by: SULY Vital Signs Vital signs: Vital Signs - 8 hr 07/20/20 00:42 07/20/20 01:07 07/20/20 01:30 Temperature 98.3 F Pulse Rate 66 81 78 Respiratory Rate 20 20 18 Blood Pressure 161/77 H 149/76 H 157/82 H Pulse Oximetry 100 100 100 07/20/20 02:00 07/20/20 02:30 07/20/20 02:59 Temperature Pulse Rate 70 65 70 Respiratory Rate 20 18 16 Blood Pressure 159/80 H 149/79 H 138/77 Pulse Oximetry 100 99 99 07/20/20 03:00 Temperature Pulse Rate 67 Respiratory Rate 14 Blood Pressure 147/85 H Pulse Oximetry 99 MDM - Male Genitourinary Lab Data Result diagrams: 07/20/20 00:56 07/20/20 03:00 Labs: Lab Results 07/20/20 07/20/20 07/20/20 Range/Units 00:56 00:56 03:00 WBC 13.9 H (4.5-11.0) X10^3/uL RBC 4.50 (4.5-5.9) X10^6/uL Hgb 14.1 (13.5-17.5) g/dL Hct 41.3 (41-53) % MCV 91.9 (80-100) fL MCH 31.4 (26-34) PG MCHC 34.1 (30-36) % RDW 13.4 (11.6-14.8) % Plt Count 207 (150-400) X10^3/uL Neut % (Auto) 77.8 H (50-75) % Lymph % (Auto) 11.0 L (25-40) % [place] % (Auto) 10.7 (3-14) % Eos % (Auto) 0.2 L (2-4) % Baso % (Auto) 0.3 (0-2) % Neut # (Auto) 81909 H (2260-5963) /uL Lymph # (Auto) 1500 (8874-6595) /uL [place] # (Auto) 1500 H (0-900) /uL Eos # (Auto) 0 (0-450) /uL Baso # (Auto) 0 (0-100) /uL Sodium 133 L (137-145) mmol/L Potassium 3.8 (3.4-5.1) mmol/L Chloride 100 (98-107) mmol/L Carbon Dioxide 21 L (22-32) mmol/L BUN 27 H (9-20) mg/dL Creatinine 1.86 H 1.78 H (0.66-1.25) mg/dL Estimated GFR 36.2 L 38.1 L (>60) mL/min BUN/Creatinine Ratio 14.5 (6-22) Glucose 127 H (80-110) mg/dL Calcium 9.4 (8.4-10.2) mg/dL Imaging Data US - abdomen: Radiologist's Impression: bilateral hydronephrosis, no ureteral jet on left MDM Narrative Medical decision making narrative: patient returns to the ED again, has worsening renal function and not tolerating pain at home. Call to Dr. Ward who is happy to accept this patient on his service. Requests that patient be admitted, kept NPO, pain meds, nausea meds. Discharge Plan Departure Patient Disposition: Admitted as Observation Clinical Impression: Acute unilateral obstructive uropathy Discharge Date/Time: 07/20/20 03:16 Admit Date/Time: 07/20/20 03:15 Admit Provider: Denis Ward
[2020-07-20] MEDS: KETOROLAC 60 MG/2 ML VIAL 15 MG IV (00:59)
[2020-07-20] MEDS: ONDANSETRON 4 MG/2 ML INJ IV (00:59)
[2020-07-20] MEDS: SODIUM CHLORIDE 0.9% 1,000 ML 1000 ML IV ×2 (00:59→02:27)
[2020-07-20] MEDS: LIDOCAINE 2% 6.5 ML in SODIUM CHLORIDE 0.9% 50 ML 339 ML IV (01:02)
--- NOTE | 2020-07-20 01:05 | PC.NURSE ---
Pt placed on monitor car operator for lidocaine administration
[2020-07-20 01:11] LABS: Add Manual Diff / Slide Review NO; Basophils Absolute Auto 0 /uL (0-100); Basophils Percent Auto 0.3 % (0-2); Eosinophils Absolute Auto 0 /uL (0-450); Eosinophils Percent Auto 0.2 % (2-4); Hematocrit 41.3 % (41-53); Hemoglobin 14.1 g/dL (13.5-17.5); Lymphocytes Absolute Auto 1500 /uL (1100-4500); Mean Corpuscular HGB Conc 34.1 % (30-36); Mean Corpuscular Hemoglobin 31.4 PG (26-34); Mean Corpuscular Volume 91.9 fL (80-100); Monocytes Absolute Auto 1500 /uL (0-900); Monocytes Percent Auto 10.7 % (3-14); Neutrophils Absolute Auto 10800 /uL (1500-7000); Neutrophils Percent Auto 77.8 % (50-75); Platelet Count 207 X10^3/uL (150-400); Red Cell Distribution Width 13.4 % (11.6-14.8); White Blood Cell Count 13.9 X10^3/uL (4.5-11.0)
[2020-07-20 01:16] LABS: BUN Creatinine Ratio 14.5 (6-22); Blood Urea Nitrogen 27 mg/dL (9-20); Calcium 9.4 mg/dL (8.4-10.2); Carbon Dioxide 21 mmol/L (22-32); Chloride 100 mmol/L (98-107); Estimated Glomerular Filt Rate 36.2 mL/min (>60); Glucose 127 mg/dL (80-110); HEMOLYSIS < 15 (0-50); Potassium 3.8 mmol/L (3.4-5.1); Sodium 133 mmol/L (137-145)
[2020-07-20] MEDS: HYDROMORPHONE 0.5 MG INJ IV ×2 (01:28→03:42)
--- NOTE | 2020-07-20 01:32 | DI.US.S_ITS ---
PROCEDURE: US RENAL COMPLETE INDICATIONS: WORSENING RENAL FUNCTION; STONE TECHNIQUE: Real-time scanning was performed of the kidneys and bladder, with image documentation. COMPARISON: None. FINDINGS: Kidneys: Kidneys are normal in size. Right kidney measures 11.0 cm long; left kidney measures 13.3 cm long. Right renal cortical thickness is 1.5 cm; left renal cortical thickness is 1.4 cm. Renal cortical echotexture is normal. Moderate right-sided hydronephrosis. Moderate to severe left-sided hydronephrosis. No nephrolithiasis. No suspicious solid mass lesions. Small 1.7 x 0.9 x 1.0 and 1.0 x 1.2 x 0.9 centimeter right renal cysts. Bladder: Pre-void bladder volume is 268 mL. Post-void residual is 170 mL. Pre-void images demonstrate no intraluminal masses or stones. On pre-void images, the right ureteral jet is noted with color Doppler interrogation. (Of note, ureteral jets may not be detectable in up to 25% of cases due to insufficient differences in specific gravity between ureteral and bladder urine). Miscellaneous: No free pelvic fluid. IMPRESSION: 1. Moderate right and moderate to severe left hydronephrosis of uncertain etiology. 2. Large postvoid urinary bladder residual volume. Dictated by: Karen Dodd MD, PhD on 07/20/2020 at 7:52 Approved by: Karen Dodd MD, PhD on 07/20/2020 at 7:54
--- NOTE | 2020-07-20 02:13 | PC.NURSE ---
US here at bedside
[2020-07-20 03:16] LABS: Estimated Glomerular Filt Rate 38.1 mL/min (>60)
--- NOTE | 2020-07-20 03:32 | PC.NURSE ---
Pt stood without assistance and was steady on his feet.
[2020-07-20] MEDS: CEFTRIAXONE 1 GM/50 ML FROZ.PIGGY IV (03:42)
[2020-07-20] MEDS: SODIUM CHLORIDE 0.9% 1,000 ML 125 ML IV (04:26)
[2020-07-20] MEDS: AMLODIPINE 5 MG TABLET 10 MG PO (04:28)
[2020-07-20 06:22] LABS: COVID19 -Nasal RAPID Negative (Negative)
[2020-07-20] MEDS: BISACODYL 10 MG SUPP PR (09:16)
--- NOTE | 2020-07-20 14:45 | PC.NURSE ---
SHIFT SUMMARY: PATIENT DENIES PAIN AND NAUSEA ALL SHIFT. DID FEEL SOME ACID REFLUX WHICH HE ATTRIBUTES TO NO BM X [address] IRIZARRY NOTIFIED, GIVEN RECTAL SUPPOSITORY, FLATUS ONLY FOR RESULTS. STATES ACIDIC SENSATION IMPROVED. VOIDING WELL, NO EVIDENCE OF STONE. AWAITING SURGICAL PROCEDURE SCHEDULED FOR 1714. SPOUSE AT BEDSIDE. IVF INFUSING.
--- NOTE | 2020-07-20 15:19 | CM.DPNOTE ---
Met patient on day of admission for 3-4mm left distal ureteral stone presents with his and the chief complaint of worsening left flank pain. Pt. was pain free at time of meeting. Pt. A&O x 4 and he and Rosemary ([phone] cell phone) conversed easily about his medical history - which is extensive for kidney stones - and their very independent lifestyle. Pt. is retired, currently finishing up building his home, and the couple travels year round. Tonight at 5 pm is patient's lithotripsy. He hopes to go home tomorrow and denies resource needs.
--- NOTE | 2020-07-20 17:27 | PC.NURSE ---
pt ambulated in hallways. passing gas but no bowel movement.
--- NOTE | 2020-07-20 17:39 | P.HP_ITS ---
History of Present Illness History of Present Illness Date Patient Seen: 07/20/20 Time Patient Seen: 12:31 Date of Onset of Symptoms: 07/18/20 Chief complaint: left kidney stone, pain is worse Narrative: Elkin is a 69-year-old white male who was experiencing his usual health until 07/18/2020 when he had acute and severe onset of left-sided flank and abdominal pain reminiscent of having passed previous stones. He has had a several to many year history of stone. He denies having had previous interventions. He denies having had a formal metabolic evaluation. He does recall having been told that he had a medullary sponge kidney many years ago.- He denies a familial history renal or prostatic disease. He presented to the [facility] ED on 07/18/2020 with preserved then in signs and symptoms noted above. CT KUB demonstrated a 4 mm left distal ureteral calculus and multiple, bilateral, nonobstructing intrarenal calculi measuring up to 2 mm. His pain was controlled usual measures, he was provided prescriptions for Percocet, Zofran, ketorolac and tamsulosin with outpatient referral to [place] [facility]. He was contacted by the Urology Clinic on the morning of 10/18/2020, but the phone was not answered and a message was left. He reports that he did well throughout the day on 07/19/2020 until about 9:00 p.m. he then began having recurring left flank and abdominal pain that became very severe and unremitting. He again presented to the [facility] ED. I was contacted by Dr. Andrews at about 3:00 a.m., the patient in case was discussed and I advised admission for definitive therapy. Patient History Medical History (Updated 07/20/20 @ 17:47 by Denis Ward MD) Bilateral nephrolithiasis (Acute) Left ureteral stone (Acute) Renal colic on left side (Acute) Surgical History History of vasectomy Family & Social History Social History: household members spouse Prior Living Arrangements House lives independently Yes caregiver/support person No Safety & Behavioral: Feels Safe in Current Yes Environment Been Physically Hurt or No Threatened By a Person Suicidal Ideation Description None Suicide Plan Description No Plan,Clear Tobacco & Substance use: Smoking Status Never smoker alcohol intake current alcohol intake frequency other Substance Use Type does not use Meds Home Medications and Allergies Home Medications Medication Instructions Recorded Confirmed Type aspirin [Adult Low Dose Aspirin] 81 mg PO QDAY #0 08/30/11 07/20/20 History Sleep Aid (doxylamine) 12.5 mg PO HS #0 09/04/11 07/20/20 History COENZYME Q10/VITAMIN E (CO-Q-10 100 mg PO QDAY #0 12/27/12 07/20/20 History 100mg) amlodipine 10 mg tablet 10 mg PO QDAY #90 tab 03/15/20 07/20/20 Rx simvastatin 40 mg tablet See Rx Instructions .ROUTE 05/26/20 07/20/20 Rx .COMPLEX #45 tab ketorolac 10 mg PO Q6H PRN #14 tab 07/18/20 07/20/20 Rx ondansetron 4 mg PO TID-QID PRN #10 tab 07/18/20 07/20/20 Rx tamsulosin [Flomax] 0.4 mg PO DAILY #10 cap 07/18/20 07/20/20 Rx Allergies Allergy/AdvReac Type Severity Reaction Status Date / Time No Known Drug Allergies Allergy Unverified 04/12/20 10:58 Review of Systems Review of Systems ROS: Yes All systems reviewed with the patient and are negative except as otherwise documented Exam Vital Signs (past 8 hours): - 07/20/20 15:17 Temperature 98.0 F Pulse Rate 66 Respiratory Rate 16 Blood Pressure 147/76 H Pulse Oximetry 98 Oxygen Delivery Method Room Air Oxygen Flow Rate 0 Narrative Exam Narrative: He is a well-developed, well-nourished gentleman sitting upright in the chair of visiting with his and no current distress. Head/neck-male pattern balding and prescription eyeglasses otherwise unrem arkable. Chest-clear, equal, and unlabored expansion bilaterally. Heart-regular rhythm and regular rate. No clicks, rubs, or murmurs identified. Abdomen-normal and active bowel sound, flat a no localizing tenderness or rebound. Objective Labs Result Diagrams: 07/20/20 00:56 07/20/20 03:00 Labs: Laboratory Results - last 24 hr 07/20/20 07/20/20 07/20/20 00:56 00:56 03:00 WBC 13.9 H RBC 4.50 Hgb 14.1 Hct 41.3 MCV 91.9 MCH 31.4 MCHC 34.1 RDW 13.4 Plt Count 207 Neut % (Auto) 77.8 H Lymph % (Auto) 11.0 L [place] % (Auto) 10.7 Eos % (Auto) 0.2 L Baso % (Auto) 0.3 Neut # (Auto) 30400 H Lymph # (Auto) 1500 [place] # (Auto) 1500 H Eos # (Auto) 0 Baso # (Auto) 0 Sodium 133 L Potassium 3.8 Chloride 100 Carbon Dioxide 21 L BUN 27 H Creatinine 1.86 H 1.78 H Estimated GFR 36.2 L 38.1 L BUN/Creatinine Ratio 14.5 Glucose 127 H Calcium 9.4 COVID-19 PCR 07/20/20 06:00 WBC RBC Hgb Hct MCV MCH MCHC RDW Plt Count Neut % (Auto) Lymph % (Auto) [place] % (Auto) Eos % (Auto) Baso % (Auto) Neut # (Auto) Lymph # (Auto) [place] # (Auto) Eos # (Auto) Baso # (Auto) Sodium Potassium Chloride Carbon Dioxide BUN Creatinine Estimated GFR BUN/Creatinine Ratio Glucose Calcium COVID-19 PCR Negative Assessment & Plan Assessment and plan (1) Left ureteral stone: Status: Acute (2) Renal colic on left side: Status: Acute (3) Bilateral nephrolithiasis: Status: Acute Assessment & Plan narrative: Assessment: 1. Obstructing 4 mm left distal ureteral calculus. 2. Failure of MET (medical expulsion therapy). Plan: 1. Schedule CYSTOSCOPY/LEFT URETEROSCOPIC LASER LITHOTRIPSY/PLACEMENT LEFT URETERAL STENT. Reviewed findings and discussed impression and options. Explained the rationale and indications for ureteroscopic laser lithotripsy. Explain the common side effects, possible complications, perioperative limitations/restrictions, and reasonable expectations of outcome and recovery following ureteroscopic laser lithotripsy. Also discussed the rationale for future metabolic stone risk evaluation following recovery. Quality VTE Deep Vein Thrombosis/Pulmonary Embolism Present on Admission: No
[2020-07-20] MEDS: LACTATED RINGERS 1,000 ML 42 ML IV (17:56)
--- NOTE | 2020-07-20 18:59 | PM.PREOP ---
Pre-operative Note COVID-19 COVID-19 status: Negative Result date/Date tested (Pos, Neg/Pending): 07/20/20 Interval Note History & Physical reviewed/Exam performed by Physician: Yes Changes to H&P: No
[2020-07-20] MEDS: CEFAZOLIN 2 GM/100 ML FROZ.PIGGY IV (19:10)
--- NOTE | 2020-07-20 19:29 | SUR.OPER ---
Lithotomy on padded OR bed, head on pillow, arms secured on padded arm boards at <90 degrees abduction. Legs secured in padded yellow fins stirrups.
[2020-07-20] MEDS: IOPAMIDOL 15 ML VIAL INJ (19:32)
[2020-07-20] MEDS: BELLADONNA/OPIUM SUPPOSITORIES 1 EACH PR (19:33)
--- NOTE | 2020-07-20 19:53 | PM.OP.1 ---
Operative Date/Time/Diagnoses Date of procedure: 07/20/20 Time of procedure: 19:53 Pre-op diagnosis: 1. Obstructing 4 mm left distal ureteral calculus 2. Intractable left renal colic. Post-op diagnosis: same Procedure & Clinicians Procedure: 1. Cystoscopy 2. Left ureteroscopic laser lithotripsy Same procedure as scheduled: Yes Indications: 1. Obstructing 4 mm left distal ureteral calculus 2. Intractable left renal colic. Surgeon: Denis Ward Click Yes if Unassisted: Yes Anesthesia Type: General Operative Notes Findings: 1. Urethra-normal 2. External sphincter-coapted 3. Prostate-3.5 cm length with mild to moderate lateral lobe hyperplasia 4. Bladder- 1+ trabeculation. Normal ureteral orifices bilaterally. No stone tumor foreign body in the bladder. 5. Left ureter-a mulberry nearly spherical calculus was encountered an impacted at the left ureterovesical junction Closure Type: not applicable Specimen(s): other (Stone fragments from left ureter) Estimated Blood Loss (mL): 0 Blood products transfused: none Tourniquet time (min): 0 Procedure in detail: Patient was positioned supine was administered general anesthesia. He was then repositioned semi lithotomy the lower abdomen, genitalia common in groin were prepped and draped in sterile fashion. The 22 Martiniquais panendoscope was then passed a lower urinary tract with findings as described above. A 0.35 guidewire was then advanced in left ureteral orifice and advanced proximally with a coil created in the intrarenal collecting system under direct and fluoroscopic guidance. Next a 15 Martiniquais by 4 cm balloon dilating catheter was selected. This was advanced over the guidewire, across the left ureterovesical junction and the balloon was inflated to 18 atmospheres and held in place it for 5 minutes. The balloon was then deflated and backloaded off the guidewire. The semi rigid ureteral scope was then prepared was advanced lower urinary tract and then into the distal portion left ureter with the findings as described above. All operating room personnel and patient were fitted with laser safety eyewear. A 273 micron laser fiber was selected. This was then advanced into the ureteral scope and advanced forward until the tip was in near contact with the calculus. Laser lithotripsy was then commenced with excellent result in stone fragmentation. Stone fragments were then removed from the distal ureter with a combination of hydrostatic and mechanical agitation. The ureteral scope was then removed. The panendoscope was then reintroduced and the bladder was filled and drained completely. Stone fragments were then collected from the drainage bag. They were submitted to the laboratory for routine crystallographic analysis. The patient then was repositioned supine, was awakened, and transferred to [facility] awake and in stable condition. Complications: none Post-operative Condition: stable Disposition: PACU Plan for aftercare: Discharge home
--- NOTE | 2020-07-20 20:09 | SUR.PHASEI ---
Arouses spontaneously, Dr. Ward spoke to the patient. He denies pain/nausea. Told him that he could sleep while we monitor him for a little longer prior to return to acute care.
--- NOTE | 2020-07-20 20:17 | SUR.PHASEI ---
HOB elevated, juice and pudding given. stable and comfortable
--- NOTE | 2020-07-20 20:26 | SUR.PHASEI ---
stood at bedside with RN standby to void. Urine clear yellow. Stable on feet. Tolerating PO intake well, continues to deny pain. Preparing to transfer to .
--- NOTE | 2020-07-20 21:18 | PC.NURSE ---
arrived 2039 in AC. A&OX4. denied pain, nausea or sob. independent. pt had some cranberry juice. denied any dizziness or light headedness. pt urinated, had some bleeding but stopped. IV dc'd. discharge teaching done. pt will call for follow up tomorrow.
--- NOTE | 2020-07-20 21:29 | SUR.PHASEI ---
2032 to room 202, bed down and locked, call light within reach, present. Continues to deny pain/nausea. Very anxious to be discharge. stable.
[2020-08-11 10:15] LABS: Stone Analysis Source LEFT URETER
[2020-08-11 10:16] LABS: Ca oxalate monohydr 100%
[2020-08-11 10:17] LABS: PDF SEE EMR REFERENCE
== END 2020-07-20 21:18 | disposition home or self-care (01) ==
LOC: ED 00:49 → AC 03:16
PROVIDERS: Admitting Provider Specialist; Emergency Provider Emergency Medicine; Family Provider Family Medicine; PCP Family Medicine; Visit Provider Specialist
PROC: (CPT 52353; principal; 2020-07-20 17:15)
DX: N20.1 Calculus of ureter (principal); N40.0 Benign prostatic hyperplasia without lower urinary tract symptoms; Z11.59 Encounter for screening for other viral diseases
CPT/HCPCS: 52353; 36415; 76000; 76770; 80048; 82365; 82565; 85025; 87635; 96361; 96365; 96375; 96376; 99220; 99284; G0378; J0690; J1100; J1170; J1885; J2250; J2405; J2704; J3010

== ENCOUNTER → 2020-09-21 10:59 | Outpatient (CLI) | payer OTHER, SELFPAY ==
[2020-07-20 03:31] VITALS: BMI 27.2
[2020-09-21 11:39] LABS: Calcium 9.1 mg/dL (8.4-10.2)
--- NOTE | 2020-09-21 14:25 | DI.RAD.S_ITS ---
PROCEDURE: XR KUB INDICATIONS: kidney stones TECHNIQUE: One view of the abdomen acquired. COMPARISON: [facility], CT, CT KIDNEY URETER BLADDER (KUB), 07/18/2020, 10:46. FINDINGS: Surgical changes and devices: None. Bowel: Bowel gas pattern is normal. Soft tissues: No suspicious abdominal calcifications. Visualized solid organ contours appear normal in size. Bones: No suspicious bony lesions. IMPRESSION: Bilateral pelvic phleboliths, larger on the left than the right, are again seen but no urinary tract stone is identified. Dictated by: Feroz Orellana M.D. on 09/21/2020 at 15:21 Approved by: Feroz Orellana M.D. on 09/21/2020 at 15:22
[2020-09-22 08:45] LABS: Parathyroid Hormone Int 46 pg/mL (15-65)
== END ==
PROVIDERS: Family Provider Family Medicine; PCP Family Medicine; Referring Provider Specialist; Visit Provider Specialist
DX: N20.0 Calculus of kidney (principal); N20.1 Calculus of ureter; N23 Unspecified renal colic; N13.9 Obstructive and reflux uropathy, unspecified
CPT/HCPCS: 36415; 74018; 82310; 83970; 84550

== ENCOUNTER → 2020-09-28 19:36 | Outpatient (ROUT) | payer OTHER, SELFPAY ==
[2020-07-20 03:31] VITALS: BMI 27.2
[2020-09-30 08:36] LABS: Fecal Immunochemical Test Negative (Negative)
== END ==
PROVIDERS: Family Provider Family Medicine; PCP Family Medicine; Visit Provider Family Medicine
DX: Z12.11 Encounter for screening for malignant neoplasm of colon (principal)
CPT/HCPCS: 82274

== ENCOUNTER → 2021-04-11 10:52 | Outpatient (CLI) | payer OTHER, SELFPAY ==
[2020-07-20 03:31] VITALS: BMI 27.2
[2021-04-11 11:54] LABS: Microalbumi Creatinin Ratio Ur 50.3 ug/mg CR (<30); Microalbumin Urine Random 6.9 mg/dL (0-1.6)
[2021-04-11 12:17] LABS: Alanine Aminotransferase 22 IU/L (<50); Albumin 4.5 g/dL (3.5-5.0); Albumin Globulin Ratio 1.3 (1.0-2.8); Alkaline Phosphatase 66 U/L (38-126); Aspartate Aminotransferase 34 IU/L (17-59); Bilirubin Total 0.8 mg/dL (0.2-1.3); Blood Urea Nitrogen 22 mg/dL (9-20); Calcium 9.3 mg/dL (8.4-10.2); Carbon Dioxide 25 mmol/L (22-32); Chloride 105 mmol/L (98-107); Cholesterol 158 mg/dL (140-199); Estimated Glomerular Filt Rate > 60.0 mL/min (>60); Globulin 3.6 g/dL (1.7-4.1); Glucose 92 mg/dL (80-110); HDL Cholesterol 37 mg/dL (40-60); Potassium 4.2 mmol/L (3.4-5.1); Sodium 141 mmol/L (137-145); Total Protein 8.1 g/dL (6.3-8.2); Triglycerides 129 mg/dL (35-150)
[2021-04-11 12:18] LABS: HEMOLYSIS < 15 (0-50); LDL Cholesterol Calculated 95 mg/dL (<100)
[2021-04-11 12:53] LABS: Free T3, Triiodothyronine Free 3.89 pg/mL (2.77-5.27); Free T4, Direct Thyroxine 1.01 ng/dL (0.78-2.19)
[2021-04-11 13:06] LABS: Thyroid Stimulating Hormone 7.02 uIU/mL (0.47-4.68)
== END ==
PROVIDERS: Family Provider Family Medicine; PCP Family Medicine; Referring Provider Family Medicine; Visit Provider Family Medicine
DX: E78.5 Hyperlipidemia, unspecified (principal); I10 Essential (primary) hypertension; R79.89 Other specified abnormal findings of blood chemistry
CPT/HCPCS: 36415; 80053; 80061; 82043; 82570; 84439; 84443; 84481

== ENCOUNTER → 2021-10-26 11:13 | Outpatient (CLI) | payer OTHER, SELFPAY ==
[2021-09-05 09:47] VITALS: BMI 27.2
--- NOTE | 2021-10-26 11:17 | DI.RAD.S_ITS ---
PROCEDURE: XR KUB INDICATIONS: calculus of kidney, bilateral nephrolithiasis TECHNIQUE: One view of the abdomen acquired. COMPARISON: [facility], CT, CT KIDNEY URETER BLADDER (KUB), 07/18/2020, 10:46. [facility], CR, XR KUB, 09/21/2020, 14:45. FINDINGS: Surgical changes and devices: None. Bowel: Bowel gas pattern is normal. Soft tissues: There are pelvic phleboliths. A calcification which was seen at the location of the left distal ureteral stone on the 07/18/2020 CT is not seen on this x-ray and therefore suggest interval passage. Visualized solid organ contours appear normal in size. Bones: No suspicious bony lesions. IMPRESSION: 1. Kidney stone from 07/18/2020 has probably passed. 2. No other nephroureterolithiasis. Dictated by: Luis Villalta M.D. on 10/26/2021 at 11:41 Approved by: Luis Villalta M.D. on 10/26/2021 at 11:45
[2021-10-26 13:14] LABS: Prostate Specific Antigen 0.978 ng/mL (0.10-4.00)
== END ==
PROVIDERS: Family Provider Family Medicine; PCP Family Medicine; Referring Provider Specialist; Visit Provider Specialist
DX: Z87.442 Personal history of urinary calculi (principal); N23 Unspecified renal colic; R97.20 Elevated prostate specific antigen [PSA]
CPT/HCPCS: 36415; 74018; 84153

== ENCOUNTER → 2021-11-08 14:48 | Outpatient (CLI) | payer OTHER, SELFPAY ==
[2021-09-05 09:47] VITALS: BMI 27.2
[2021-11-09 18:17] LABS: Fecal Immunochemical Test Negative (Negative)
== END ==
PROVIDERS: Family Provider Family Medicine; PCP Family Medicine; Referring Provider Family Medicine; Visit Provider Family Medicine
DX: Z12.11 Encounter for screening for malignant neoplasm of colon (principal)
CPT/HCPCS: 82274

== ENCOUNTER → 2022-07-13 08:55 | Outpatient (CLI) | payer OTHER, SELFPAY ==
[2021-09-05 09:47] VITALS: BMI 27.2
[2022-07-13 12:56] LABS: Alanine Aminotransferase 19 IU/L (<50); Albumin 4.3 g/dL (3.5-5.0); Albumin Globulin Ratio 1.2 (1.0-2.8); Alkaline Phosphatase 61 U/L (38-126); Aspartate Aminotransferase 25 IU/L (17-59); BUN Creatinine Ratio 21.2 (6-22); Bilirubin Total 0.8 mg/dL (0.2-1.3); Blood Urea Nitrogen 25 mg/dL (9-20); Calcium 8.9 mg/dL (8.4-10.2); Carbon Dioxide 28 mmol/L (22-32); Chloride 103 mmol/L (98-107); Cholesterol 148 mg/dL (140-199); Estimated Glomerular Filt Rate > 60 mL/min (>60); Globulin 3.6 g/dL (1.7-4.1); Glucose 95 mg/dL (80-110); HDL Cholesterol 32 mg/dL (40-60); HEMOLYSIS < 15 (0-50); LDL Cholesterol Calculated 96 mg/dL (<100); Potassium 4.3 mmol/L (3.4-5.1); Sodium 141 mmol/L (137-145); Total Protein 7.9 g/dL (6.3-8.2); Triglycerides 102 mg/dL (35-150)
[2022-07-13 12:59] LABS: Creatinine Urine Random 164.8 mg/dL
[2022-07-13 13:08] LABS: Microalbumi Creatinin Ratio Ur 19.4 ug/mg CR (<30); Microalbumin Urine Random 3.2 mg/dL (0-1.6)
== END ==
PROVIDERS: Family Provider Family Medicine; PCP Family Medicine; Referring Provider Family Medicine; Visit Provider Family Medicine
DX: I10 Essential (primary) hypertension (principal)
CPT/HCPCS: 36415; 80053; 80061; 82043; 82570

== ENCOUNTER → 2023-01-01 12:36 | Outpatient (CLI) | payer OTHER, SELFPAY ==
[2021-09-05 09:47] VITALS: BMI 27.2
[2023-01-03 07:34] LABS: Fecal Immunochemical Test Positive (Negative)
== END ==
PROVIDERS: Family Provider Family Medicine; PCP Family Medicine; Referring Provider Family Medicine; Visit Provider Family Medicine
DX: Z91.89 Other specified personal risk factors, not elsewhere classified (principal)
CPT/HCPCS: 82274

== ENCOUNTER 2023-03-27 12:23 | Day surgery (SDC) | payer OTHER, SELFPAY ==
[2021-09-05 09:47] VITALS: BMI 27.2
[2023-03-27] VITALS (8 sets, daily range): BP systolic 77–125; BP diastolic 52–82; PULSE 57–81; RESP 18–21; TEMP 36.3–36.6; O2SAT 93–99; BMI 27.2
--- NOTE | 2023-03-27 | PATH_ITS ---
[facility] Accession Number: [id number] No. of containers..01 Tissue . 01 Material submitted: . colon - TRANSVERSE POLYPS . 01 Diagnosis: Transverse Colon Polyps, Biopsy: Tubular adenomas. Hyperplastic polyp. [facility] 04/02/2023 1111 Local . 01 Electronically signed: . Rut Rodriguez MD, Pathologist NPI- [id number] . 01 Gross description: . TRANSVERSE POLYPS: Received in formalin are 3 fragment(s) of amador, soft tissue measuring 0.1 x 0.1 x 0.1 cm to 0.3 x 0.3 x 0.3 cm submitted entirely in 1 cassette(s) /[facility]EX[facility] 03/28/2023 2300 Local . 01 Pathologist provided ICD-10: D12.3 . 01 CPT . 426228 Specimen Comment: A courtesy copy of this report has been sent to [phone] Performed at: 01 [facility] [address] [place] [address], [place], [place] [id number] MD Guanakito Martinez MD Phone: [phone]
[2023-03-27] MEDS: LACTATED RINGERS 1,000 ML 200 ML IV (12:46)
--- NOTE | 2023-03-27 13:08 | PM.HP.1 ---
History of Present Illness History of Present Illness Date Patient Seen: 03/27/23 Time Patient Seen: 13:08 Chief complaint: SDC Narrative: 72-year-old man here for screening colonoscopy. Father had colon cancer. Last colonoscopy was 2010 and normal. No abdominal pain nausea vomiting unintentional weight loss or blood per rectum. [facility] Medical History Bilateral nephrolithiasis History of nephrolithiasis Left ureteral stone Renal colic on left side Surgical History History of vasectomy Family History Mother Cancer Father Cancer CAD (coronary artery disease) Hypertension Brother Hypertension Kidney stones Grandmother Diabetes mellitus Social History marital status: number of children: 2 household members: spouse lives independently: Yes caregiver/support person: No housing: house Smoking Status: Never smoker second hand exposure: No alcohol intake: current substance use type: does not use Meds Home Medications and Allergies Home Medications Medication Instructions Recorded Confirmed Type aspirin 81 mg tablet,delayed 81 mg PO QDAY ##0 08/30/11 07/19/22 History release (Adult Low Dose Aspirin) doxylamine succinate 25 mg tablet 12.5 mg PO HS ##0 09/04/11 07/19/22 History (Sleep Aid (doxylamine)) COENZYME Q10/VITAMIN E (CO-Q-10 100 mg PO QDAY ##0 12/27/12 07/19/22 History 100mg) multivitamin 1 tab PO DAILY 09/20/20 07/19/22 History turmeric 400 mg capsule mg PO 09/20/20 07/19/22 History vitamin D PO 11/02/21 07/19/22 History simvastatin 40 mg tablet See Rx Instructions .Route 07/19/22 07/19/22 Rx .COMPLEX #90 tabs trazodone 50 mg tablet 50 mg PO BEDTIME PRN insomnia #30 07/19/22 Rx tabs lisinopril 5 mg tablet 5 mg PO DAILY #60 tabs 01/31/23 Rx Allergies Allergy/AdvReac Type Severity Reaction Status Date / Time No Known Drug Allergies Allergy Verified 03/27/23 12:47 Exam Vital Signs (past 8 hours): - 03/27/23 12:57 Temperature 97.3 F L Pulse Rate 68 Respiratory Rate 18 Blood Pressure 125/82 Pulse Oximetry 99 Oxygen Delivery Method Room Air Oxygen Delivery Method Room Air Narrative Exam Narrative: General adult man alert oriented no acute distress Abdomen soft nontender nondistended Extremities warm well perfused Assessment & Plan Assessment and plan (1) Family history of colon cancer: Status: Acute Assessment & Plan narrative: 72-year-old man with a family history of colon cancer here for screening colonoscopy. Technical details were discussed. Risks, benefits, alternatives explained. Risks including but not limited to myocardial infarction, aspiration, bleeding, pain, missed lesion, incomplete examination, need for further radiographic studies, colonic perforation, and need for major abdominal surgery were discussed. All questions were answered to their satisfaction, and they are in agreement with this plan.
--- NOTE | 2023-03-27 13:47 | P.OP.COLON_ITS ---
Operative Date/Time/Diagnoses Date of procedure: 03/27/23 Time of procedure: 13:47 Pre-op diagnosis: Family history of colon cancer Post-op diagnosis: other (Colonic polyps x3) Procedure & Clinicians Study performed: Colonoscopy Same procedure as scheduled: Yes Indications: Family history of colon cancer, colorectal screening Surgeon: Jerry Shelton Procedure Notes Procedure in detail: The history and physical was performed/updated and the patient is ASA class is 2. The procedure was discussed in detail with the patient. Potential risks complications including infection, bleeding, missed diagnosis, perforation, need for surgery, and were explained. Their questions were answered and informed consent was obtained. Patient was brought to the procedure room and placed standard monitoring equipment. The patient's vital signs were monitored continuously throughout the entire procedure. Prior to starting time-out was performed. The patient was placed in the left lateral recumbent position. Procedural sedation was adminis tered by anesthesia. Examination began with a thorough inspection of the perianal area there was no evidence of fissures, fistulae, external hemorrhoids or cutaneous malignancy. The colonoscopy scope was then placed into the anal canal and was advanced to the cecum, which was identified by the ileocecal valve, the appendiceal orifice and the confluence of the taenia. The scope was then slowly withdrawn examining colon thoroughly in all directions, irrigating it of any residual stool. Within the transverse colon there were 3 polyps ranging in size from 3-5 mm all of which were removed with biopsy forceps. The remainder of the colonoscopy was unremarkable. The patient tolerated the procedure well. They will be discharged once criteria are met. The prep was of good/excellent quality. The withdrawl time was 12 minutes. Specimen(s): other (Transverse colonic polyps) Impression: Colonic polyps x3 Post-procedure Plan for aftercare: Follow-up is dependent on pathology findings Disposition: same day surgery
== END 2023-03-27 14:13 | disposition home or self-care (01) ==
PROVIDERS: Family Provider Family Medicine; PCP Family Medicine; Referring Provider Surgery; Visit Provider Surgery
PROC: 0DJD8ZZ Inspection of Lower Intestinal Tract, Via Natural or Artificial Opening Endoscopic (ICD-10-PCS; CPT 45378; principal; 2023-03-27 13:30)
DX: Z12.11 Encounter for screening for malignant neoplasm of colon (principal); Z80.0 Family history of malignant neoplasm of digestive organs; D12.3 Benign neoplasm of transverse colon
CPT/HCPCS: 45380; J2704

== ENCOUNTER → 2023-09-24 12:49 | Outpatient (CLI) | payer OTHER, SELFPAY ==
[2021-09-05 09:47] VITALS: BMI 27.2
[2023-09-24 13:23] LABS: Add Manual Diff / Slide Review NO; Basophils Absolute Auto 0 /uL (0-100); Basophils Percent Auto 0.8 % (0-2); Eosinophils Absolute Auto 200 /uL (0-450); Hematocrit 41.2 % (41-53); Hemoglobin 13.7 g/dL (13.5-17.5); Lymphocytes Absolute Auto 2000 /uL (1100-4500); Lymphocytes Percent Auto 33.9 % (25-40); Mean Corpuscular HGB Conc 33.3 % (30-36); Mean Corpuscular Hemoglobin 31.4 PG (26-34); Mean Corpuscular Volume 94.3 fL (80-100); Monocytes Absolute Auto 600 /uL (0-900); Neutrophils Absolute Auto 3100 /uL (1500-7000); Neutrophils Percent Auto 52.3 % (50-75); Platelet Count 201 X10^3/uL (150-400); Red Blood Cell Count 4.37 X10^6/uL (4.5-5.9); Red Cell Distribution Width 13.9 % (11.6-14.8); White Blood Cell Count 5.9 X10^3/uL (4.5-11.0)
[2023-09-24 13:41] LABS: Alanine Aminotransferase 24 IU/L (<50); Albumin 4.3 g/dL (3.5-5.0); Albumin Globulin Ratio 1.2 (1.0-2.8); Alkaline Phosphatase 55 U/L (38-126); Aspartate Aminotransferase 26 IU/L (17-59); BUN Creatinine Ratio 19.5 (6-22); Bilirubin Total 0.9 mg/dL (0.2-1.3); Blood Urea Nitrogen 23 mg/dL (9-20); Calcium 9.8 mg/dL (8.4-10.2); Carbon Dioxide 27 mmol/L (22-32); Chloride 104 mmol/L (98-107); Cholesterol 174 mg/dL (140-199); Estimated Glomerular Filt Rate > 60 mL/min (>60); Globulin 3.7 g/dL (1.7-4.1); Glucose 98 mg/dL (80-110); HDL Cholesterol 33 mg/dL (40-60); HEMOLYSIS < 15 (0-50); LDL Cholesterol Calculated 112 mg/dL (<100); Potassium 4.4 mmol/L (3.4-5.1); Sodium 138 mmol/L (137-145); Triglycerides 144 mg/dL (35-150)
[2023-09-24 15:52] LABS: Creatinine Urine Random 156.5 mg/dL
[2023-09-24 15:57] LABS: Microalbumin Urine Random 3.3 mg/dL (0-1.6)
== END ==
PROVIDERS: Family Provider Family Medicine; PCP Family Medicine; Referring Provider Family Medicine; Visit Provider Family Medicine
DX: Z80.0 Family history of malignant neoplasm of digestive organs (principal); E78.5 Hyperlipidemia, unspecified; I10 Essential (primary) hypertension
CPT/HCPCS: 36415; 80053; 80061; 82043; 82570; 85025

== ENCOUNTER → 2023-10-02 12:39 | Outpatient (CLI) | payer OTHER, SELFPAY ==
[2021-09-05 09:47] VITALS: BMI 27.2
--- NOTE | 2023-10-02 12:41 | DI.RAD.S_ITS ---
PROCEDURE: XR KNEE RT 3V INDICATIONS: pain TECHNIQUE: 3 views of the knee were acquired. COMPARISON: [facility], , KNEE 3V RIGHT, 05/26/2015, 11:13. FINDINGS: Bones: No fractures or dislocations. Tricompartmental osteoarthritic changes with marginal spurring and moderate medial joint space narrowing. No suspicious bony lesions. Soft tissues: Small joint effusion. No suspicious soft tissue calcifications. IMPRESSION: Moderate osteoarthritic changes of the right knee. Dictated by: Norberto Sun M.D. on 10/02/2023 at 15:38 Approved by: Norberto Sun M.D. on 10/02/2023 at 15:40
--- NOTE | 2023-10-02 12:41 | DI.RAD.S_ITS ---
PROCEDURE: XR KNEE LT 3V INDICATIONS: pain TECHNIQUE: 3 views of the knee were acquired. COMPARISON: [facility], , KNEE 3V RIGHT, 05/26/2015, 11:13. FINDINGS: Bones: No fractures or dislocations. Tricompartmental osteoarthritic change with tricompartmental spurring. Mild to moderate medial joint space narrowing. Mild patellofemoral joint space narrowing. No suspicious bony lesions. Soft tissues: Small joint effusion. No suspicious soft tissue calcifications. IMPRESSION: Tricompartmental osteoarthritic changes with mild to moderate joint space narrowing. Dictated by: Norberto Sun M.D. on 10/02/2023 at 15:36 Approved by: Norberto Sun M.D. on 10/02/2023 at 15:38
== END ==
PROVIDERS: Family Provider Family Medicine; PCP Family Medicine; Referring Provider Family Medicine; Visit Provider Family Medicine
DX: M25.561 Pain in right knee (principal); M25.562 Pain in left knee; M25.461 Effusion, right knee; M25.462 Effusion, left knee
CPT/HCPCS: 73562

== ENCOUNTER → 2023-11-05 10:42 | Outpatient (CLI) | payer OTHER, SELFPAY ==
[2021-09-05 09:47] VITALS: BMI 27.2
--- NOTE | 2023-11-05 10:44 | DI.MRI.S_ITS ---
PROCEDURE: MR KNEE RT WO CON INDICATIONS: Localized right knee arthritis TECHNIQUE: Noncontrast sagittal PD fast spin echo and T2 fast spin echo with fat saturation, sagittal 3-D FLASH with fat saturation; coronal T1 spin echo and PD fast spin echo with fat saturation, and axial PD fast spin echo with fat saturation through the knee. COMPARISON: [facility], CR, XR KNEE RT 3V, 10/02/2023, 12:43. [facility], MR, KNEE WITHOUT CONTRAST, 06/03/2015, 16:42. FINDINGS: Image quality: Excellent. Anterior Cruciate Ligament: Mild mucoid degeneration of the anterior cruciate ligament. The bulk of the ligament fibers are intact. Posterior Cruciate Ligament: Posterior cruciate ligament is attenuated, consistent with prior sprain/partial tear. Some of the ligament fibers remain in continuity. Medial Collateral Ligament: Intact. Lateral Collateral Ligament: Intact. Medial Meniscus: There is diffuse complex degenerative tearing and maceration of the medial meniscus with extrusion of the meniscal body beyond the femorotibial joint line. Lateral Meniscus: Mild intrasubstance degeneration without a discrete tear. Medial and Lateral Tendons: The semimembranosus tendon insertions and meniscocapsular junction appear intact. Visualized portions of the pes anserinus tendons appear normal. No abnormal bursal fluid. The long and short heads of the biceps femoris tendon appear intact. Mild distal popliteus tendinosis. No signs of posterolateral corner injury. Iliotibial band appears normal. Anterior Structures: The quadriceps and patellar tendons appear intact. No patellar subluxation. No femoral trochlear dysplasia or ventral trochlear prominence. No edema in the infrapatellar fat pad. Bones: No acute trabecular bone injury or fracture. Medial Femorotibial Cartilage: Full-thickness cartilage loss is seen throughout the weight-bearing portion of the medial femorotibial compartment with subchondral edema, marginal osteophyte formation, and mild remodeling of the medial tibial plateau articular surface. Findings have minimally progressed when compared to the MRI from 06/03/2015. Lateral Femorotibial Cartilage: Grade 2-3 chondromalacia is seen in the posterior weight-bearing portion of the lateral femorotibial compartment with small marginal osteophytes. Patellofemoral Cartilage: Focal full-thickness cartilage loss at the median ridge/lateral facet of the patella with subchondral osteophyte formation. Additional moderate grade partial cartilage irregularity is seen in the lateral patellar facet and there is deep cartilage fissuring in the medial facet. Full-thickness cartilage loss and subchondral osteophyte formation also noted in the trochlear groove superiorly with surrounding partial-thickness chondromalacia. Soft Tissues: Moderate joint effusion is present. Small ossified intra-articular loose bodies are seen in the medial femoral gutter adjacent to the medial femoral condyle osteophytes. Small medial popliteal cyst. The musculature surrounding the knee is normal in bulk. IMPRESSION: 1. Tricompartmental osteoarthrosis which is most notable in the medial femorotibial compartment with there is a large area of full-thickness cartilage loss as well subchondral edema and remodeling of the articular surfaces. Small areas of full-thickness cartilage loss are seen in the patellofemoral compartment with subchondral osteophyte formation. Grade 2-3 chondromalacia is seen in the lateral femorotibial compartment. There is tricompartmental marginal osteophyte formation. 2. Diffuse degenerative tearing and maceration of the medial meniscus with extrusion of the meniscal body beyond the femorotibial joint line. 3. Intrasubstance degeneration in the lateral meniscus without a clearly defined tear. 4. Remote prior moderate grade sprain/partial tear of the posterior cruciate ligament with attenuation of remaining intact fibers. 5. Mild mucoid degeneration of the anterior cruciate ligament. 6. Moderate joint effusion with small ossified intra-articular loose bodies in the medial femoral gutter. Small medial popliteal cyst. Approved by: Norman Mckee M.D. on 11/06/2023 at 9:33
== END ==
LOC: MRI 10:43
PROVIDERS: Family Provider Family Medicine; PCP Family Medicine; Referring Provider Orthopaedic Surgery Foot and Ankle Surgery; Visit Provider Orthopaedic Surgery Foot and Ankle Surgery
DX: M23.231 Derangement of other medial meniscus due to old tear or injury, right knee (principal); M17.11 Unilateral primary osteoarthritis, right knee; M25.861 Other specified joint disorders, right knee; S83.521D Sprain of posterior cruciate ligament of right knee, subsequent encounter; M94.261 Chondromalacia, right knee; M71.21 Synovial cyst of popliteal space [Baker], right knee; M25.461 Effusion, right knee
CPT/HCPCS: 73721

== ENCOUNTER → 2024-10-01 09:59 | Outpatient (CLI) | payer OTHER, SELFPAY ==
[2021-09-05 09:47] VITALS: BMI 27.2
[2024-10-01 10:42] LABS: Hematocrit 41.1 % (41-53); Hemoglobin 13.7 g/dL (13.5-17.5); Mean Corpuscular HGB Conc 33.4 % (30-36); Mean Corpuscular Hemoglobin 31.9 PG (26-34); Mean Corpuscular Volume 95.5 fL (80-100); Platelet Count 199 X10^3/uL (150-400); Red Blood Cell Count 4.31 X10^6/uL (4.5-5.9); Red Cell Distribution Width 13.9 % (11.6-14.8); White Blood Cell Count 5.1 X10^3/uL (4.5-11.0)
[2024-10-01 10:53] LABS: Hemoglobin A1C% w Est Avg Glu 5.3 % (4.0-6.0)
[2024-10-01 10:58] LABS: Creatinine Urine Random 121.78 mg/dL
[2024-10-01 10:59] LABS: Alanine Aminotransferase 23 IU/L (<50); Albumin 4.2 g/dL (3.5-5.0); Albumin Globulin Ratio 1.6 (1.0-2.8); Alkaline Phosphatase 58 U/L (38-126); Aspartate Aminotransferase 30 IU/L (17-59); BUN Creatinine Ratio 18.8 (6-22); Bilirubin Total 0.8 mg/dL (0.2-1.3); Blood Urea Nitrogen 25 mg/dL (9-20); Calcium 9.4 mg/dL (8.4-10.2); Carbon Dioxide 28 mmol/L (22-32); Chloride 105 mmol/L (98-107); Cholesterol 132 mg/dL (140-199); Estimated Glomerular Filt Rate 56 mL/min (>60); Globulin 2.7 g/dL (1.7-4.1); Glucose 93 mg/dL (80-110); HDL Cholesterol 35 mg/dL (40-60); HEMOLYSIS < 15 (0-50); LDL Cholesterol Calculated 81 mg/dL (<100); Potassium 4.3 mmol/L (3.4-5.1); Sodium 138 mmol/L (137-145); Total Protein 6.9 g/dL (6.3-8.2); Triglycerides 78 mg/dL (35-150)
== END ==
PROVIDERS: Family Provider Family Medicine; PCP Family Medicine; Referring Provider Family Medicine; Visit Provider Family Medicine
DX: Z00.00 Encounter for general adult medical examination without abnormal findings (principal); E78.5 Hyperlipidemia, unspecified; Z13.1 Encounter for screening for diabetes mellitus; Z80.0 Family history of malignant neoplasm of digestive organs; I10 Essential (primary) hypertension
CPT/HCPCS: 36415; 80053; 80061; 82043; 82570; 83036; 85027

== ENCOUNTER → 2024-10-06 09:38 | Outpatient (CLI) | payer OTHER, SELFPAY ==
[2021-09-05 09:47] VITALS: BMI 27.2
[2024-10-06 10:24] LABS: Prostate Specific Antigen Scrn 0.975 ng/mL (0.1-4.0)
== END ==
PROVIDERS: Family Provider Family Medicine; PCP Family Medicine; Visit Provider Family Medicine
DX: Z12.5 Encounter for screening for malignant neoplasm of prostate (principal)
CPT/HCPCS: G0103

== ENCOUNTER → 2024-11-13 11:38 | Outpatient (CLI) | payer OTHER, SELFPAY ==
[2021-09-05 09:47] VITALS: BMI 27.2
[2024-11-13 12:36] LABS: Appearance Urine UA CLEAR; Bilirubin Urine UA NEGATIVE (NEGATIVE); Color Urine UA YELLOW; Glucose Urine UA NEGATIVE (Negative); Ketones Urine UA NEGATIVE (NEGATIVE); Leukocyte Esterase Urine UA NEGATIVE (NEGATIVE); Nitrite Urine UA NEGATIVE (Negative); Occult Blood Urine UA NEGATIVE (Negative); Protein Urine UA NEGATIVE (Negative); Urobilinogen Urine UA 0.2 E.U./dL (0.2)
[2024-11-13 12:44] LABS: Bacteria Urine None Seen; RBC Urine None Seen (0-5/HPF); Squamous Epithelial Cell Urine 0-1 /HPF (0-5/HPF); Urine Volume 10mL (spun); WBC Urine 0-1/HPF (0-5/HPF)
[2024-11-13 12:45] LABS: Culture Indicated Urine Cult Not Indicated
== END ==
LOC: LAB 11:41
PROVIDERS: Family Provider Family Medicine; PCP Family Medicine; Referring Provider Family Medicine; Visit Provider Family Medicine
DX: R30.0 Dysuria (principal)
CPT/HCPCS: 81001